=== PATIENT | female | born 1965 | race Caucasian/White ===

== ENCOUNTER 2019-03-31 18:29 | Emergency (ER) | payer BC ==
--- NOTE | 2019-03-31 19:44 | ERPHSYRPT ---
- History of Present Illness Time Seen by Provider: 03/31/19 20:04 Patient Subjective Stated Complaint: PATIENT STATES HER WHOLE FAMILY HAS THE FLU. PATIENT STATES " I HAVE HAD BODY ACHES, LOW GRADE FEVER, NAUSEA WITH NO VOMITING, NO APPETITE, AND MIGRAINE FOR LAST 2 DAYS. PATIENT STATES ENTIRE FAMILY HAS THE FLU. PATIENT STATES HER GRANDSON HAS BEEN IN ER AND TESTED POSITIVE FOR FLU Triage Nursing Assessment: PATIENT AMBULATED TO ROOM. GAIT SLOW AND STEADY. SKIN WARM AND DRY. LUNGS DIMINISHED THROUGHOUT. THROAT WITH NO REDNESS OR IRRITATION. BILATERAL EYES WATERY. PATIENT APPEARS SLIGHTLY ANXIOUS. PATIENT WITH FLU LIKE SYMPTOMS. PATIENT HOUSEHOLD WITH POSITIVE FLU Physician History: c/o flu like symptoms for 1 day Timing/Duration: day(s) Associated Symptoms: malaise, other (sore throat, watery eyes) Allergies/Adverse Reactions: No Known Drug Allergies Allergy (Unverified 03/31/19 19:55) Hx Tetanus, Diphtheria Vaccination/Date Given: No Hx Influenza Vaccination/Date Given: No Hx Pneumococcal Vaccination/Date Given: No - Review of Systems Constitutional: Fever, Chills, Malaise Eyes: No Symptoms Ears, Nose, & Throat: Nose Congestion, Throat Pain Respiratory: No Cough, No Dyspnea Cardiac: No Chest Pain, No Edema, No Syncope Abdominal/Gastrointestinal: No Abdominal Pain, No Nausea, No Vomiting, No Diarrhea Genitourinary Symptoms: No Dysuria Musculoskeletal: No Back Pain, No Neck Pain Skin: No Rash Neurological: No Dizziness, No Focal Weakness, No Sensory Changes Psychological: No Symptoms Endocrine: No Symptoms All Other Systems: Reviewed and Negative - Past Medical History Pertinent Past Medical History: No Neurological History: No Pertinent History ENT History: No Pertinent History Cardiac History: No Pertinent History Respiratory History: No Pertinent History Endocrine Medical History: No Pertinent History Musculoskeletal History: No Pertinent History GI Medical History: No Pertinent History History: No Pertinent History Psycho-Social History: No Pertinent History Female Reproductive Disorders: No Pertinent History - Past Surgical History Past Surgical History: Yes Neuro Surgical History: No Pertinent History Cardiac: No Pertinent History Respiratory: No Pertinent History Gastrointestinal: No Pertinent History Genitourinary: No Pertinent History Musculoskeletal: No Pertinent History, Orthopedic Surgery Female Surgical History: No Pertinent History Other Surgical History: RIGHT KNEE SURGERY - Social History Smoking Status: Never smoker Exposure to second hand smoke: Yes Drug Use: none Patient Lives Alone: No - Female History Hx Now: No - Nursing Vital Signs Nursing Vital Signs: Initial Vital Signs Temperature 98.5 F 03/31/19 18:41 Pulse Rate 113 H 03/31/19 18:41 Respiratory Rate 20 03/31/19 18:41 Blood Pressure 110/76 03/31/19 18:41 O2 Sat by Pulse Oximetry 97 03/31/19 18:41 Pain Scale Pain Intensity [Head] 8 Pain Intensity 5 - Physical Exam General Appearance: no apparent distress, alert Eye Exam: PERRL/EOMI, eyes nml inspection, other (injected conjunctiva) Ears, Nose, Throat Exam: normal ENT inspection, TMs normal, pharynx normal, moist mucous membranes, pharyngeal erythema Neck Exam: normal inspection, non-tender, supple, full range of motion Respiratory Exam: normal breath sounds, lungs clear, No respiratory distress Cardiovascular Exam: regular rate/rhythm, normal heart sounds, normal peripheral pulses Gastrointestinal/Abdomen Exam: soft, normal bowel sounds, No tenderness, No mass Back Exam: normal inspection, normal range of motion, No CVA tenderness, No vertebral tenderness Extremity Exam: normal inspection, normal range of motion, pelvis stable Neurologic Exam: alert, oriented x 3, cooperative, normal mood/affect, nml cerebellar function, nml station & gait, sensation nml, No motor deficits Skin Exam: normal color, warm, dry, No rash Lymphatic Exam: No adenopathy SpO2: 97 Ordered Tests: Medication Summary Discontinued Medications Generic Name Dose Route Start Last Admin Trade Name Freq PRN Reason Stop Dose Admin Acetaminophen 1,000 mg 03/31/19 19:48 03/31/19 19:56 Tylenol Extra Strength 500 Mg PO 03/31/19 19:49 1,000 mg STAT STA Administration Acetaminophen Confirm 03/31/19 19:52 Tylenol Extra Strength 500 Mg Administered 03/31/19 19:53 Dose 1,000 mg .ROUTE .STK-MED ONE Oseltamivir Phosphate Confirm 03/31/19 19:58 Tamiflu 75mg Capsule Administered 03/31/19 19:59 Dose 75 mg PO .STK-MED ONE Lab/Rad Data: Laboratory Results 03/31/19 Range/Units 19:00 Influenza Type A Ag POSITIVE (NEGATIVE) Influenza Type B Ag NEGATIVE (NEGATIVE) RSV (PCR) NEGATIVE (Negative) Group A Strep Antibody NEGATIVE (NEGATIVE) - Progress Progress: unchanged Counseled pt/family regarding: lab results, diagnosis, need for follow-up - Departure Departure Disposition: Home Clinical Impression: Influenza A Condition: Stable Critical Care Time: No Referrals: DOCTOR,NO FAMILY [Primary Care Provider] - Instructions: Flu, Adult (DC) Additional Instructions: Discharge/Care Plan DAVID GUTIERREZ was seen on 03/31/19 in the Emergency Room. The patient was counseled regarding Diagnosis,Lab results, Imaging studies, need for follow up and when to return to the Emergency Room. Prescriptions given: Discharge Note I have spoken with the patient and/or caregivers. I have explained the patient' s condition, diagnosis and treatment plan based on the information available to me at this time. I have answered the patient's and/or caregiver's questions and addressed any concerns. The patient and/or caregivers have as good understanding of the patient's diagnosis, condition and treatment plan as can be expected at this point. The vital signs have been stable. The patient's condition is stable and appropriate for discharge from the emergency department. The patient will pursue further outpatient evaluation with the primary care physician or other designated or consulting physician as outlined in the discharge instructions. The patient and/or caregivers are agreeable to this plan of care and follow-up instructions have been explained in detail. The patient and/or caregivers have received these instruction. The patient/and or caregivers are aware that any significant change in condition or worsening of symptoms should prompt an immediate return to this or the closest emergency department or call 911. Prescriptions: Guaifenesin/Codeine Phos [Cheratussin AC Syrup] 5 ml PO Q6H #240 liquid Oseltamivir 75 mg [Tamiflu 75MG Capsule] 75 mg PO BID #10 cap
[2019-03-31] MEDS ORDERED: TYLENOL EXTRA STRENGTH 500 MG PO STA (19:48)
[2019-03-31] MEDS ORDERED: TYLENOL EXTRA STRENGTH 500 MG ONE (19:52)
[2019-03-31 19:56] LABS: Group A Strep NEGATIVE (NEGATIVE); INFLUENZA A POSITIVE (NEGATIVE); INFLUENZA B NEGATIVE (NEGATIVE); RESPIRATORY SYNCTIAL VIRUS NEGATIVE (Negative)
[2019-03-31 19:58] VITALS: BP 112/82; PULSE 104
[2019-03-31] MEDS ORDERED: Tamiflu 75MG Capsule PO ONE ×2 (19:58→20:11)
[2019-03-31 20:04] VITALS: O2SAT 97
== END 2019-03-31 20:24 | disposition home or self-care (01) ==
LOC: ED 18:29
DX: J11.1 Influenza due to unidentified influenza virus with other respiratory manifestations (principal)
CPT/HCPCS: 87631; 87651; 99283; A9270-GY

== ENCOUNTER 2024-02-21 10:10 | Day surgery (SDC) | payer BC ==
--- NOTE | 2024-02-21 08:08 | HP ---
HISTORY OF PRESENT ILLNESS: A 58-year-old female with right upper quadrant pain, nausea. No vomiting. Cholelithiasis. PAST MEDICAL HISTORY: Has had some heartburn, reflux. She has had some CHF in the past. PAST SURGICAL HISTORY: Had uterine ablation and knee scope in the past. Had cyst excised by her ear in the past. FAMILY HISTORY: Lung cancer. SOCIAL HISTORY: No smoking or alcohol abuse. MEDICATIONS: Omeprazole, furosemide, potassium chloride. ALLERGIES: No known drug allergies. REVIEW OF SYSTEMS: Twelve systems reviewed. No chest pain or palpitations. Other systems negative or noncontributory as above and per preadmission questionnaire. PHYSICAL EXAMINATION: GENERAL: Height 5 foot. BMI 34.37. No acute distress. HEENT: Sclerae nonicteric. Extraocular movements intact. NECK: No JVD. CHEST: Equal excursion, nonlabored breathing. CARDIOVASCULAR: Regular rate and rhythm. ABDOMEN: Soft. Nontender on office visit today. EXTREMITIES: No cyanosis or edema. NEUROLOGIC: Alert and oriented. Moving extremities symmetrically. PSYCHIATRIC: Appropriate mood and affect. SKIN: Dry. IMPRESSION: Acute exacerbation of chronic cholecystitis, cholelithiasis. Recommend cholecystectomy. Shown the gallbladder pamphlet. Risks were explained in detail including bleeding and infection; risk of trocar injury or hernia; risk of bile leak, bile duct injury or retained stone or sludge possibly requiring further procedure either ERCP or open procedure; general risk of anesthesia, DVT, PE, pneumonia; risk of aches and pains, bloating, constipation, and/or loose stools possibly chronic in nature; possibility of no improvement of preop symptoms possibly requiring further workup or studies or endoscopy, or other studies or referrals. Otherwise, continue medications for reflux and heart disease. PLAN: Laparoscopic cholecystectomy with possible open under general anesthetic as an outpatient.
[2024-02-21] MEDS ORDERED: MEFOXIN 2 GM PREMIX** 2 GM/50 ML ML IV ONE (10:33)
[2024-02-21] MEDS ORDERED: Lactated Ringers 1,000 ML IV ONE (10:34)
[2024-02-21] MEDS: Lactated Ringers 1,000 ML IV SCH (10:54)
[2024-02-21] MEDS: MEFOXIN 2 GM PREMIX** 2 GM/50 ML ML IV SCH (10:55)
[2024-02-21 11:23] LABS: ANION GAP 13.8 MEQ/L (5-15); Calcium 9.9 mg/dL (8.4-10.2); Creatinine 1 0.84 mg/dL (0.52-1.04); EST GLOMERULAR FILTRATION RATE 81.5 ML/MIN
[2024-02-21] MEDS ORDERED: Sodium Chloride 0.9% 1000 ML 1,000 ML ONE (12:41)
[2024-02-21] MEDS ORDERED: Sensorcaine 0.25% 10 ML ONE (12:41)
[2024-02-21] MEDS ORDERED: Zofran 4 MG/2 ML VIAL ONE (12:51)
[2024-02-21] MEDS ORDERED: ROCURONIUM BROMIDE IV ONE (12:51)
[2024-02-21] MEDS ORDERED: Decadron 4 MG INJ ONE (12:51)
[2024-02-21] MEDS ORDERED: DIPRIVAN 200 MG/20 ML IV ONE (12:51)
[2024-02-21] MEDS ORDERED: OFIRMEV 100 ML IV ONE (12:52)
[2024-02-21] MEDS ORDERED: PHENYLEPHRINE HCL ONE (13:08)
[2024-02-21] MEDS ORDERED: SUBLIMAZE 100 MCG/2 ML ONE ×2 (13:28→14:20)
[2024-02-21] MEDS ORDERED: BRIDION 200MG/2ML IV ONE (13:51)
[2024-02-21] MEDS ORDERED: Hydromorphone 1 mg/ml Injection ONE ×2 (14:20→15:06)
[2024-02-21 16:03] VITALS: RESP 18; TEMP 97.8
[2024-02-21 16:24] VITALS: BP 111/83; PULSE 110; O2SAT 91
--- NOTE | 2024-02-23 10:24 | OP ---
SURGERY DATE/TIME: 02/21/2024 [id number] PREOPERATIVE DIAGNOSIS: Acute exacerbation of chronic cholecystitis, cholelithiasis. POSTOPERATIVE DIAGNOSIS: Acute exacerbation of chronic cholecystitis, cholelithiasis. PROCEDURE: Laparoscopic cholecystectomy. SURGEON: Sampson Weller MD ANESTHESIA: General. ESTIMATED BLOOD LOSS: Minimal. INDICATIONS: As noted above. The risks were explained in detail, but not limited to. Consent obtained. DESCRIPTION OF PROCEDURE AND FINDINGS: The patient was taken to the operating room. General anesthesia was induced. The abdomen was prepped and draped in the usual sterile fashion. After official time-out, no disagreement in planned procedure. Transverse incision. Pneumoperitoneum accomplished insufflating from an opening pressure of 0-15. A 5 mm bladeless port and camera inserted without difficulty, followed by two 5 mm right upper quadrant ports and 10/11 mm epigastric port. Gallbladder was grasped, retracted over the edge of the liver and laterally to Calot triangle. Had some chronic inflammation and was quite thickened in the cystic duct/infundibular area, but it was slowly, carefully with the aid of the end of a Kittner carefully dissected out cystic duct and main cystic artery until critical view was obtained both anteriorly and posteriorly. Once this was accomplished, cystic duct/cystic artery clipped x3 and divided in the usual fashion. The gallbladder was slowly, carefully dissected free from its dense attachments to the liver bed. There was a small, tiny structure going into the body of the gallbladder close to the anterior edge of the liver. Whether this was a lymphatic or accessory bile duct, it was clipped and divided, as well as clipping additional oozing side branches off the cystic artery or vein directly on the gallbladder wall. The gallbladder was dissected directly on the gallbladder wall, carefully dissected up to the anterior edge of the liver. Just prior to releasing it from its final attachments to the anterior edge of the liver, the liver bed reinspected. The clips were noted to be in place in the cystic duct/cystic artery stumps. No signs of any active bleeding or bile leakage. [place] there was no benefit from drain placement. There was a little pinhole in the gallbladder, spilled a small amount of bile. There was no evidence of any stone spillage. The gallbladder was decompressed, and the gallbladder was released from its final attachments to the anterior edge of the liver, placed in the provided sac, pulled up in the epigastrium and we spread the fascia slightly with a clamp. The gallbladder was pulled upward and it was opened outside the skin remaining in the bag, and multiple large stones were removed with the aid of the [place]. With the gallbladder bag finally being able to be pulled free and passed off, copious irrigation accomplished lateral to the liver and subhepatic space irrigated clear. Clips noted to be in place in cystic duct/cystic artery stumps. No signs of any active bleeding or bile leakage, and felt there was no benefit from drain placement. At this point, the fascial defect at the 10/11 site was closed with puncture closure device and #1 Vicryl. The pneumoperitoneum decompressed. Wounds irrigated out. Skin incision closed with 4-0 Vicryl. Steri-Strips and sterile dressing applied. The patient tolerated the procedure well. There were no immediate complications. I went out to the waiting room to look for family to discuss findings.
== END 2024-02-21 16:31 | disposition home or self-care (01) ==
LOC: SDC 10:10
PROVIDERS: ATTEND Surgery
DX: K80.10 Calculus of gallbladder with chronic cholecystitis without obstruction (principal); Z80.1 Family history of malignant neoplasm of trachea, bronchus and lung
CPT/HCPCS: 36415; 80048; J0694; J1100; J1171; J2371; J2405; J2704; J3010; L0625